=== PATIENT | male | born 1960 | race Caucasian/White ===

== ENCOUNTER 2019-09-11 11:25 | Emergency (ER) | payer BC ==
--- OUTSIDE RECORDS SUMMARY | 2019-09-11 11:57 | XMS REPORT | Continuity of Care Document ---
:1960 External Reference #:[id number] Author Name Olman Bassett MD (transmitted by agent of provider Kassi Hickman) Address [address] [place] [address] Care Team Providers Name Role Phone Rory Geronimo MD - Family Medicine Care Team Information Coagulator Problems Active Problems Provider Date Cervical spondylosis without myelopathy Mathieu Rodriguez M.D. Onset: 12/19/2013 Brachial neuritis Mathieu Rodriguez M.D. Onset: 11/24/2014 Cervical spondylosis Leslye Bullock MD Onset: 07/29/2019 Social History Type Date Description Comments Sex Unknown ETOH Use Currently consumes alcohol ETOH Use consumed 3-4 beers per day Recreational Drug Use Denies Drug Use Tobacco Use Start: Unknown End: Unknown Patient is a former smoker Smoking Status Reviewed: 09/11/19 Patient is a former smoker Allergies, Adverse Reactions, Alerts Description No Known Drug Allergies Medications Active Medications SIG Qnty Indications Ordering Date Provider Losartan Potassium 1 by mouth every 30tabs Rory Geronimo, day 100mg Tablets Viagra 4 times a month 12tabs Rory Geronimo, 100mg Tablets Levothyroxine Sodium 1 by mouth every 30tabs Rory Geronimo, day 88mcg Tablets Amlodipine Besylate 1 by mouth every 90tabs MiduraRory, day MD 10mg Tablets Aspirin 81 1 by mouth every Unknown 81mg Tablets day Doxazosin Mesylate 1 by mouth every Unknown 8mg day Tablets Centrum Vitamints 1 tab daily Unknown Chewtabs Guaiatussin ac take 5 milliliters Unknown every 6-8 hours as 100-10mg/5ML Syrup needed for cough Medications Administered in Office Medication SIG Qnty Indications Ordering Provider Date Celestone 3 mg and 3mg Hilda Joseph, 01/13/2012 Injection M.DCorazon Celestone 3 mg and 3mg Hilda Jake, 01/13/2012 Injection M.DCorazon Celestone 3 mg and 3mg Hilda Joseph, 01/13/2012 Injection M.DCorazon Depomedrol 40MG Roland Rodney M.D. 11/28/2011 Injection Depomedrol 40MG Roland Rodney M.D. 11/28/2011 Injection Celestone 3 mg and 3mg Hilda Joseph, 06/17/2011 Injection M.DCorazon Celestone 3 mg and 3mg Hilda Joseph, 05/13/2011 Injection M.DCorazon Immunizations Description No Information Available Vital Signs Date Vital Result Comment 09/11/2019 10:55am Height 70 inches 5'10" Weight 284.00 lb Heart Rate 65 /min BP Systolic Sitting 140 mmHg L arm BP Diastolic Sitting 93 mmHg L arm O2 % BldC Oximetry 93 % BMI (Body Mass Index) 40.7 kg/m2 07/29/2019 1:13pm Weight 281.00 lb Heart Rate 60 /min BP Systolic Sitting 146 mmHg BP Diastolic Sitting 90 mmHg Results Test Acquired Date Facility Test Result H/L Range Note Neph Routine 08/28/2019 [facility] Total Protein 185 mg/dL [address] [place] [address] [phone] Creatinine Random Urine 112.92 mg/dL CBC Auto 08/28/2019 [facility] White Blood 7.8 10^3/uL Normal 3.5-10.[address] Count [place], [place] [id number] [phone] Red Blood Count 4.54 10^6/uL Normal 4.18-5.48 Hemoglobin 13.7 g/dL Low 14.0-18.0 Hematocrit 40 % Low 42-52 Mean Corpuscular Volume 88 fL Normal 80-94 Mean Corpuscular Hemoglobin 30 pg Normal 27-31 Mean Corpuscular HGB Conc 35 g/dL Normal 31-36 Red Cell Distribution Width 14 % Normal 10-15 Platelet Count 171 10^3/uL Normal 150-450 Mean Platelet Volume 9.0 fL Normal 7.4-10.4 Abs Neutrophils 5.7 10^3/uL Normal 1.5-7.7 Abs Lymphocytes 1.4 10^3/uL Normal 1.0-4.8 Abs Monocytes 0.4 10^3/uL Normal 0-0.8 Abs Eosinophils 0.2 10^3/uL Normal 0-0.6 Abs Basophils 0.1 10^3/uL Normal 0-0.2 Abs Nucleated RBC 0.0 10^3/uL Granulocyte % 72.8 % Lymphocyte % 17.8 % Monocyte % 5.2 % Eosinophil % 2.9 % Basophil % 1.3 % Nucleated Red Blood Cells % 0.2 Urinalysis Profile 08/28/2019 [facility] Urine Color Yellow [address] [place] [address] [phone] Urine Appearance Cloudy Urine Specific Victoria 1.014 Normal 1.010-1.030 Urine pH 5.0 Normal 5-9 Urine Urobilinogen Negative Negative Urine Ketones Negative Negative Urine Protein 2+(100 mg/dL) Abnormal Negative Urine Leukocytes Negative Negative Urine Blood Negative Negative Urine Nitrite Negative Negative Urine Bilirubin Negative Negative Urine Glucose Negative Negative Urine White Blood Cell Trace(0-5/hpf) Absent Urine Red Blood Cell Absent Absent Urine Bacteria Absent Absent Basic Metabolic 08/28/2019 [facility] Sodium 140 mmol/L Normal 135-[address] [place] [address] [phone] Potassium 4.6 mmol/L Normal 3.5-5.0 Co2 Carbon Dioxide 20 mmol/L Low 22-32 Glucose 98 mg/dL Normal 70-100 Blood Urea Nitrogen 39 mg/dL High 6-24 Creatinine 2.57 mg/dL High 0.67-1.17 BUN/Creatinine Ratio 15.2 Normal 8-20 Calcium 9.6 mg/dL Normal 8.6-10.3 Egfr Non- 25.6 >60 Egfr 30.9 >60 1 Chloride 112 mmol/L High 101-111 Anion Gap 8 mmol/L Normal 2-11 Urine Culture And 08/28/2019 [facility] Urine SEE RESULT [address] [place] [address] [phone] Comp Metabolic 06/04/2019 [facility] Sodium 142 mmol/L Normal 135-[address] [place] [address] [phone] Potassium 4.6 mmol/L Normal 3.5-5.0 Co2 Carbon Dioxide 22 mmol/L Normal 22-32 Glucose 97 mg/dL Normal 70-100 Blood Urea Nitrogen 34 mg/dL High 6-24 Creatinine 2.82 mg/dL High 0.67-1.17 BUN/Creatinine Ratio 12.1 Normal 8-20 Calcium 9.0 mg/dL Normal 8.6-10.3 Total Protein 6.1 g/dL Low 6.4-8.9 Albumin 4.2 g/dL Normal 3.2-5.2 Globulin 1.9 g/dL Low 2-4 Albumin/Globulin Ratio 2.2 Normal 1-3 Total Bilirubin 0.40 mg/dL Normal 0.2-1.0 Alkaline Phosphatase 49 U/L Normal 34-104 Alt 31 U/L Normal 7-52 Ast 19 U/L Normal 13-39 Egfr Non- 23.0 >60 Egfr 27.8 >60 3 Chloride 113 mmol/L High 101-111 Anion Gap 7 mmol/L Normal 2-11 CBC Auto 06/04/2019 [facility] White Blood 7.8 10^3/uL Normal 3.5-10.[address] [place] [address] [phone] Red Blood Count 4.57 10^6/uL Normal 4.18-5.48 Hemoglobin 13.7 g/dL Low 14.0-18.0 Hematocrit 41 % Low 42-52 Mean Corpuscular Volume 89 fL Normal 80-94 Mean Corpuscular Hemoglobin 30 pg Normal 27-31 Mean Corpuscular HGB Conc 34 g/dL Normal 31-36 Red Cell Distribution Width 14 % Normal 10-15 Platelet Count 163 10^3/uL Normal 150-450 Mean Platelet Volume 9.2 fL Normal 7.4-10.4 Abs Neutrophils 5.3 10^3/uL Normal 1.5-7.7 Abs Lymphocytes 1.7 10^3/uL Normal 1.0-4.8 Abs Monocytes 0.5 10^3/uL Normal 0-0.8 Abs Eosinophils 0.3 10^3/uL Normal 0-0.6 Abs Basophils 0.0 10^3/uL Normal 0-0.2 Abs Nucleated RBC 0.0 10^3/uL Granulocyte % 68.2 % Lymphocyte % 22.1 % Monocyte % 5.8 % Eosinophil % 3.4 % Basophil % 0.5 % Nucleated Red Blood Cells % 0.0 Total Protein 24HR 06/04/2019 [facility] Urine Collection Time 24 hr Urine [address] [place] [address] [phone] Urine Total Volume 2850 mL Urine Total Protein/24HR < 114 mg/24Hr Normal 0-165 Creatinine 06/04/2019 [facility] Creatinine, 2.94 High 0.51- 0.[address] Serum mg/[place] [address] [phone] Urine Collection Time 24 hr Urine Total Volume 2850 mL Creatinine Clearance 60 mL/min Low 97-137 Laboratory test 06/04/2019 [facility] Urine TP < 4 mg/dL finding [address] [address] [phone] Urine Creatinine Concentration 88.73 mg/dL Urine Microalbumin 06/04/2019 [facility] Urine Creatinine 136.73 mg/dL Random [address] [place] [address] [phone] Ur Microalbumin (mg/L) > 1500.0 mg/L Urine Microalbumin/Creatinine 1097.0 High <31 Laboratory test 06/04/2019 [facility] Anti Nuclear 0.2 U [address] [place] [address] [phone] TSH (Thyroid Stim Horm) 1.98 mcIU/mL Normal 0.34-5.60 5 Free T4 (Free Thyroxine) 0.87 ng/dL Normal 0.61-1.12 6 1 Because ethnic data is not always readily available, this report includes an eGFR for both -Americans and non- Americans. The National Kidney Disease Education Program (NKDEP) does not endorse the use of the MDRD equation for patients that are not between the ages of 18 and 70, are , have extremes of body size, muscle mass, or nutritional status, or are non- or non-. According to the National Kidney Foundation, irrespective of diagnosis, the stage of the disease is based on the level of kidney function: Stage Description GFR(mL/min/1.73 m(2)) 1 Kidney damage with normal or decreased GFR 90 2 Kidney damage with mild decrease in GFR 60-89 3 Moderate decrease in GFR 30-59 4 Severe decrease in GFR 15-29 5 Kidney failure <15 (or dialysis) 2 SEE RESULT BELOW Name: ROBERT COVARRUBIAS : [address]: Ana Vitcoria MD Acct: [id number] Unit: [id number] AGE: 59 Location: LAB Re08/28/19 SEX: M Status: REG REF SPEC: [id number] VIANNEY: 08/28/[address] [facility] [address]: Ana Victoria MD REQ: [id number] RECD: 08/28/19 STATUS: COMP _ SOURCE: URINE SPDC: ORDERED: Urine Culture Procedure Result Reported Site Urine Culture Final 08/29/19- 1114 ML No Growth (<1,000 CFU/mL) * ML - Main Lab . END OF REPORT DEPARTMENT OF PATHOLOGY, [address] [place] [address] Anthony Manning M.D. Director [facility] # [id number] 3 Because ethnic data is not always readily available, this report includes an eGFR for both -Americans and non- Americans. The National Kidney Disease Education Program (NKDEP) does not endorse the use of the MDRD equation for patients that are not between the ages of 18 and 70, are , have extremes of body size, muscle mass, or nutritional status, or are non- or non-. According to the National Kidney Foundation, irrespective of diagnosis, the stage of the disease is based on the level of kidney function: Stage Description GFR(mL/min/1.73 m(2)) 1 Kidney damage with normal or decreased GFR 90 2 Kidney damage with mild decrease in GFR 60-89 3 Moderate decrease in GFR 30-59 4 Severe decrease in GFR 15-29 5 Kidney failure <15 (or dialysis) 4 REFERENCE VALUE <=1.0 (Negative) Test Performed by: [facility] - [address] [address] Fire Code Inspector: Bret Villareal M.D. Ph.D.; CLIA# [id number] 5 FASTING 6 FASTING Procedures Date Code Description Status 06/27/2019 56243 EKG Tracing & Interpretation Completed 05/17/2018 [id number] Colonoscopy Completed Medical Devices Description No Information Available Encounters Type Date Location Provider Dx Diagnosis Office Visit 09/11/2019 [facility] Nephrology Olman Bassett, N18.4 Chronic kidney 10:20a MD disease, stage 4 (severe) E03.9 Hypothyroidism, unspecified I10 Essential (primary) hypertension Office Visit 07/29/2019 [facility] M47.892 Other 1:00p Services Of Erin Bullock MD spondylosis, cervical region R20.2 Paresthesia of skin Z98.1 Arthrodesis status Office Visit 06/27/2019 11:20a [facility] Jam Rosa N18.9 Chronic kidney Of [facility] DO Richard disease, FACC unspecified F17.201 Nicotine dependence, unspecified, in remission I10 Essential (primary) hypertension E03.9 Hypothyroidism, unspecified Z68.39 Body mass index (BMI) 39.0-39.9, adult E66.8 Other obesity Z82.49 Family hx of ischem heart dis and oth dis of the circ sys Office Visit 06/26/2019 11:00a [facility] Nephrology Ana Victoria, N18.4 Chronic kidney disease, stage 4 (severe) R80.9 Proteinuria, unspecified Assessments Date Code Description Provider 09/11/2019 N18.4 Chronic kidney disease, stage 4 (severe) Olman Bassett MD 09/11/2019 E03.9 Hypothyroidism, unspecified Olman Bassett MD 09/11/2019 I10 Essential (primary) hypertension Olman Bassett MD 07/29/2019 M47.892 Other spondylosis, cervical region Leslye Bullock MD 07/29/2019 R20.2 Paresthesia of skin Leslye Bullock MD 07/29/2019 Z98.1 Arthrodesis status Leslye Bullock MD 06/27/2019 N18.9 Chronic kidney disease, unspecified Jam Ramos DO FACC 06/27/2019 F17.201 Nicotine dependence, unspecified, in Jam Ramos DO FACC remission 06/27/2019 I10 Essential (primary) hypertension Jam Ramos DO FACC 06/27/2019 E03.9 Hypothyroidism, unspecified Jam Ramos DO FACC 06/27/2019 Z68.39 Body mass index (BMI) 39.0-39.9, adult Jam Ramos, DO [facility] 06/27/2019 E66.8 Other obesity Jam Ramos, DO [facility] 06/27/2019 Z82.49 Family history of ischemic heart disease Jam Ramos, DO [facility] and other diseases of the circulatory system 06/26/2019 N18.4 Chronic kidney disease, stage 4 (severe) Ana Victoria MD 06/26/2019 R80.9 Proteinuria, unspecified Ana Victoria MD Plan of Treatment Future Appointment(s):09/02/2020 8:00 am - Olman Bassett MD at [facility] Bbswychfwo77/28/2020 9:30 am - Leslye Bullock MD at [facility]09/11/2019 - Olman Bassett MDN18.4 Chronic kidney disease, stage 4 (severe)Follow up:He needs f/u in 3 months with Labs, but wants to come in 1 year. I asked him to see his PCP in March and I'll see him in OajupcptV47.9 Hypothyroidism, [id number] Essential (primary) hypertension Functional Status Description No Information Available Mental Status Description No Information Available Referrals Description No Information Available
--- OUTSIDE RECORDS SUMMARY | 2019-09-11 11:57 | XMS REPORT | Continuity of Care Document ---
:1960 External Reference #:[id number] Author Name Leslye Bullock MD (transmitted by agent of provider Isidra Whittaker ) Address [address] [address] Care Team Providers Name Role Phone Rory Geronimo MD - Family Medicine Care Team Information Manager Of [employer] [phone] Problems Active Problems Provider Date Cervical spondylosis [...] is a former smoker Smoking Status Reviewed: 06/27/19 Patient is a former smoker Allergies, Adverse [...] 1 by mouth every 90tabs MiduraRory, day 10mg Tablets Aspirin 81 1 by mouth every Unknown 81mg Tablets day Doxazosin Mesylate 1 by mouth every Unknown 8mg day Tablets Centrum Vitamints 1 tab daily Unknown Chewtabs Prednisone 2 tabs daily for 7 Unknown 10mg (21) days, 1 tab daily TBPK for 2 weeks Guaiatussin ac take 5 milliliters Unknown every 6-8 hours as 100-10mg/5ML Syrup needed for cough Medications Administered in Office Medication SIG Qnty Indications Ordering Provider Date Celestone 3 mg and 3mg Hilda Joseph, 01/13/2012 Injection Petey Celestone 3 mg and 3mg Hilda Joseph, 01/13/2012 Injection Petey Celestone 3 mg and 3mg Hilda Joseph, 01/13/2012 Injection Petey Depomedrol 40MG Roland Rodney M.D. 11/28/2011 Injection Depomedrol 40MG Roland Rodney M.D. 11/28/2011 Injection Celestone 3 mg and 3mg Hilda Joseph, 06/17/2011 Injection Petey Celestone 3 mg and 3mg Hilda Joseph, 05/13/2011 Injection Petey Immunizations Description No Information Available Vital Signs Date Vital Result Comment 07/29/2019 1:13pm Weight 281.00 lb Heart Rate 60 /min BP Systolic Sitting 146 mmHg BP Diastolic Sitting 90 mmHg 06/27/2019 10:30am Height 70.5 inches 5'10.50" Weight 280.00 lb with shoes Heart Rate 68 /min irregular BP Systolic 142 mmHg Rue large cuff BP Diastolic 90 mmHg Rue large cuff BP Systolic Sitting 138 mmHg Lue large cuff BP Diastolic Sitting 90 mmHg Lue large cuff BP Systolic Standing 136 mmHg Lue large cuff BP Diastolic Standing 90 mmHg Lue large cuff Respiratory Rate 13 /min BMI (Body Mass Index) 39.6 kg/m2 Results Test Date Facility Test Result H/L Range Note Comp Metabolic 06/04/2019 [facility] Sodium 142 mmol/L Normal 135-[address] [place] [address] [phone] Potassium 4.6 mmol/L Normal 3.5-5.0 Co2 Carbon [...] Egfr Non- 23.0 >60 Egfr 27.8 >60 1 Chloride 113 mmol/L High 101-111 Anion Gap 7 mmol/L Normal 2-11 CBC Auto 06/04/2019 [facility] White Blood 7.8 10^3/uL Normal 3.5-10.[address] [place] [address] [phone] Red Blood Count 4.57 10^6/uL Normal 4.18-5.48 [...] Cells % 0.0 Total Protein 24HR 06/04/2019 [facility] Urine Collection Time 24 hr Urine [address] [place] [address] [phone] Urine Total Volume 2850 mL Urine Total Protein/24HR < 114 mg/24Hr Normal 0-165 Creatinine 06/04/2019 [facility] Creatinine, 2.94 High 0.51- 0.[address] Serum mg/[place] [address] [phone] Urine Collection Time 24 hr Urine Total Volume 2850 mL Creatinine Clearance 60 mL/min Low 97-137 Laboratory test 06/04/2019 [facility] Urine TP < 4 mg/dL finding [address] [place] [address] [phone] Urine Creatinine Concentration 88.73 mg/dL Urine Microalbumin 06/04/2019 [facility] Urine Creatinine 136.73 mg/dL Random [address] [place] [address] [phone] Ur Microalbumin (mg/L) > 1500.0 mg/L Urine Microalbumin/Creatinine 1097.0 High <31 Laboratory test 06/04/2019 [facility] Anti Nuclear 0.2 U [address] [address] [phone] TSH (Thyroid Stim Horm) 1.98 mcIU/mL Normal 0.34-5.60 3 Free T4 (Free Thyroxine) 0.87 ng/dL Normal 0.61-1.12 4 1 Because ethnic data is not always [...] 5 Kidney failure <15 (or dialysis) 2 REFERENCE VALUE <=1.0 (Negative) Test Performed by: [facility] [address] [place] [address] [employer] Specialist: Bret Villareal M.D. Ph.D.; CLIA# [id number] 3 FASTING 4 FASTING Procedures Date Code Description Status 06/27/2019 87579 EKG Tracing & Interpretation Completed 05/17/2018 [id number] Colonoscopy Completed Medical Devices Description No Information Available Encounters Type Date Location Provider Dx Diagnosis Office Visit 06/27/2019 [facility] Jam Ramos, N18.9 Chronic kidney 11:20a Of [facility] DO FACC disease, unspecified F17.201 Nicotine dependence, unspecified, in remission I10 Essential (primary) hypertension E03.9 Hypothyroidism, unspecified Z68.39 Body mass index (BMI) 39.0-39.9, adult E66.8 Other obesity Z82.49 Family hx of ischem heart dis and oth dis of the circ sys Office Visit 06/26/2019 11:00a [facility] Nephrology Ana Victoria, N18.4 Chronic kidney MD disease, stage 4 (severe) R80.9 Proteinuria, unspecified Office Visit 02/06/2019 9:00a [facility] Nephrology Ana R80.9 Proteinuria, MD Esme unspecified N18.3 Chronic kidney disease, stage 3 (moderate) I12.9 Hypertensive chronic kidney disease w stg 1-4/unsp chr kdny E03.9 Hypothyroidism, unspecified Assessments Date Code Description Provider 07/29/2019 M47.892 Other spondylosis, cervical region Vassildeejay Bullock MD 06/27/2019 N18.9 Chronic kidney disease, unspecified Jam Ramos DO FACC 06/27/2019 F17.201 Nicotine dependence, unspecified, in Jam Ramos, DO FACC remission 06/27/2019 I10 Essential (primary) hypertension Jam Ramos DO FACC 06/27/2019 E03.9 Hypothyroidism, unspecified Jam Ramos DO FACC 06/27/2019 Z68.39 Body mass index (BMI) 39.0-39.9, adult Jam Ramos DO FACC 06/27/2019 E66.8 Other obesity Jam Ramos DO FAC 06/27/2019 Z82.49 Family history of ischemic heart disease Jam Ramos, DO [facility] and other diseases of the circulatory system 06/26/2019 N18.4 Chronic kidney disease, stage 4 (severe) Ana Victoria MD 06/26/2019 R80.9 Proteinuria, unspecified Ana Victoria MD 02/06/2019 R80.9 Proteinuria, unspecified Ana Victoria MD 02/06/2019 N18.3 Chronic kidney disease, stage 3 Ana Victoria MD (moderate) 02/06/2019 I12.9 Hypertensive chronic kidney disease with Ana Victoria MD stage 1 through sta 02/06/2019 E03.9 Hypothyroidism, unspecified Ana Victoria MD Plan of Treatment Future Appointment(s):07/29/2020 9:30 am - Leslye Bullock MD at [facility]09/02/2019 9:00 am - Olman Bassett MD at [facility] Kaxmyhholf81/28/2019 - Leslye Bullock, MDM47.892 Other spondylosis, cervical regionFollow up:RV in 1 year Functional Status Description No Information Available Mental Status Description No Information Available Referrals Description No Information Available
--- NOTE | 2019-09-11 12:13 | ED ---
Lower Extremity - HPI Summary HPI Summary: Patient is a 59 y/o M presenting to [facility] with complaints of pain to his left upper leg. Patient believes that he pulled "something" in his left upper leg. Pain has been present for the past three weeks. Patient is capable of putting weight on his left leg. He notes that when he sits for a long period of time and stands up, he experiences an exacerbation of pain. Patient cannot recall any discrete injury, he states that the pain has been present for the past three weeks. PMHx of HTN is endorsed. PSHx of left ankle surgery. He is a former smoker and occasional uses alcohol. On triage, pain is rated 3/10. Home medications and allergies are reviewed. - History of Current Complaint Chief Complaint: EDExtremityLower Stated Complaint: LT KNEE PAIN PER PT Time Seen by Provider: 09/11/19 11:56 Hx Obtained From: Patient Mechanism Of Injury: Other - no JENI reported Onset of Pain: Prior to Arrival Onset/Duration: Still Present Severity Currently: Mild Pain Intensity: 3 Pain Scale Used: 0-10 Numeric Timing: Constant, Lasting Weeks Location: Is Discrete @ - upper left leg Associated Signs And Symptoms: Positive: Negative Aggravating Factor(s): Other - when he sits for a long period of time and stands up, he experiences an exacerbation of pain. Alleviating Factor(s): Nothing - Allergies/Home Medications Allergies/Adverse Reactions: Allergies Allergy/AdvReac Type Severity Reaction Status Date / Time No Known Allergies Allergy Verified 10/26/16 13:25 PMH/Surg Hx/FS Hx/Imm Hx Endocrine/Hematology History: Denies: Hx Diabetes Cardiovascular History: Reports: Hx Hypertension Denies: Hx Pacemaker/ICD Respiratory History: Denies: Hx Asthma Sensory History: Denies: Hx Hearing Aid Psychiatric History: Denies: Hx Panic Disorder - Surgical History Surgery Procedure, Year, and Place: C-SP FUSION, [facility] Infectious Disease History: Unable to Obtain/Confirm Infectious Disease History: Denies: Traveled Outside the [place] in Last 30 Days - Family History Known Family History: Positive: Cardiac Disease - Social History Alcohol Use: None Substance Use Type: Reports: None Smoking Status (MU): Former Smoker Review of Systems Negative: Fever - on vitals, temp is 97.9 F Musculoskeletal: Other - positive - upper left leg pain All Other Systems Reviewed And Are Negative: Yes Physical Exam - Summary Physical Exam Summary: VITAL SIGNS: Reviewed. GENERAL: Patient is a well-developed and nourished male who is lying comfortable in the stretcher. Patient is not in any acute respiratory distress. HEAD AND FACE: No signs of trauma. No ecchymosis, hematomas or skull depressions. No sinus tenderness. EYES: PERRLA, EOMI x 2, No injected conjunctiva, no nystagmus. EARS: Hearing grossly intact. Ear canals and tympanic membranes are within normal limits. MOUTH: Oropharynx within normal limits. NECK: Supple, trachea is midline, no adenopathy, no JVD, no carotid bruit, no c- spine tenderness, neck with full ROM. CHEST: Symmetric, no tenderness at palpation. LUNGS: Clear to auscultation bilaterally. No wheezing or crackles. CVS: Regular rate and rhythm, S1 and S2 present, no murmurs or gallops appreciated. ABDOMEN: Soft, non-tender. No signs of distention. No rebound, no guarding, and no masses palpated. Bowel sounds are normal. EXTREMITIES: FROM in all major joints, no edema, no cyanosis or clubbing. NEURO: Alert and oriented x 3. No acute neurological deficits. Speech is normal and follows commands. SKIN: Dry and warm. Triage Information Reviewed: Yes Vital Signs On Initial Exam: Initial Vitals Temp Pulse Resp BP Pulse Ox 97.9 F 62 18 187/92 97 09/11/19 11:38 12 11:38 09/11/19 11:38 09/11/19 11:38 09/11/19 11:38 Vital Signs Reviewed: Yes Procedures - Sedation Patient Received Moderate/Deep Sedation with Procedure: No Diagnostics - Vital Signs Vital Signs Temp Pulse Resp BP Pulse Ox 09/11/19 11:38 97.9 F 62 18 187/92 97 - Laboratory Lab Statement: Any lab studies that have been ordered have been reviewed, and results considered in the medical decision making process. - Radiology Knee XR Radiology Interpretation Completed By: Radiologist Summary of Radiographic Findings: IMPRESSION: Unremarkable left knee. An ED physician has reviewed this report. Lower Extremity Course/Dx - Course Assessment/Plan: Patient is a 59 y/o M presenting to [facility] with complaints of pain to his left upper leg. Patient believes that he pulled "something" in his left upper leg. Pain has been present for the past three weeks. Patient is capable of putting weight on his left leg. He notes that when he sits for a long period of time and stands up, he experiences an exacerbation of pain. Patient cannot recall any discrete injury, he states that the pain has been present for the past three weeks. PMHx of HTN is endorsed. PSHx of left ankle surgery. He is a former smoker and occasionally uses alcohol. On triage, pain is rated 3/10. Home medications and allergies are reviewed. X-ray of the left knee impression: Unremarkable left knee. Therefore, the patient was discharged home with follow-up with primary care physician and his orthopedic doctor. The patient is able to ambulate with no pain. Patient is hemodynamically stable alert oriented 3. - Diagnoses Differential Diagnosis/HQI/PQRI: Positive: Bursitis, Fracture (Closed), Sprain, Strain Provider Diagnoses: Knee pain Discharge ED - Sign-Out/Discharge Documenting (check all that apply): Patient Departure - discharge - Discharge Plan Condition: Stable Disposition: HOME Patient Education Materials: Knee Pain (ED) Referrals: Rory Geronimo MD [Primary Care Provider] - Additional Instructions: Follow up with your primary care provider in 2-3 days. Return to the Emergency room if you experience new or worsened symptoms. - Billing Disposition and Condition Condition: STABLE Disposition: Home - Attestation Statements Document Initiated by Giancarlo: Yes Documenting Scribe: Logan Dc Provider For Whom Giancarlo is Documenting (Include Credential): Tapan Ellis MD Scribe Attestation: Logan Still, scribed for Tapan Ellis MD on at 1047. Scribe Documentation Reviewed: Yes Provider Attestation: The documentation as recorded by the georgeibrudy, Logan Dc accurately reflects the service I personally performed and the decisions made by , Tapan Ellis MD Status of Scribe Document: Viewed
[2019-09-11] MEDS ORDERED: Albuterol/Ipratropium NEB.SOL* Albuterol 2.5 MG/Ipratropium 0.5 MG 3 ML INH ONE (12:14)
[2019-09-11] MEDS ORDERED: methylPREDNISolone 125 MG* 2 ML VIAL IV ONE (12:14)
[2019-09-11 13:35] VITALS: BP 149/87
== END 2019-09-11 13:34 | disposition home or self-care (01) ==
LOC: ED 11:25
DX: M25.562 Pain in left knee (principal); I10 Essential (primary) hypertension; Z87.891 Personal history of nicotine dependence
CPT/HCPCS: 99282

== ENCOUNTER 2019-10-15 06:55 | Day surgery (SDC) | payer BC ==
--- NOTE | 2019-10-09 09:59 | HP ---
HISTORY AND PHYSICAL: DATE OF ADMISSION: 10/15/19 He is entering [facility] for same day surgery at the [facility] on 10/15/19. CHIEF COMPLAINT: Medial left knee pain. HISTORY OF PRESENT ILLNESS: This 59-year-old male, cared for by Dr. Geronimo, has had 6 weeks of medial left knee pain. It got started when he was taking off his hunting boots on about 08/21/19 and he has had trouble getting comfortable in the region since that time. There has been some catching. He has had to walk through his foot turned out. If he catches his left toe on something, it is severely painful for the left knee. He has recently finished a week of steroids from Dr. Geronimo and he notes that hydrocodone has cut the pain in half. He has not been allowed to take ibuprofen or Aleve because of other problems, but he has used some Tylenol. His hydrocodone has been renewed once by Dr. Geronimo. The MRI scan of this knee is pending. PAST MEDICAL HISTORY: He has been overweight. He quit smoking 18 months ago. He has 3 to 4 alcoholic beverage drinks per week. He has not had any cancers. No history of DVT or pulmonary embolism. He is being followed for proteinuria by the nephrology service. No history of heart attack. No history of chest pain. No history of bronchitis. Hypertension. No history of embolism or palpitations. No asthma. No diabetes. No GI problems. Renal proteinuria was noted already. No bleeding tendencies. PAST SURGICAL HISTORY: On the neck 2006, no complications. MEDICATIONS: Daily meds include: 1. Multivitamins. 2. Aspirin 81 mg. 3. Losartan 100 mg. 4. Doxazosin 4 mg. 5. Levothroid 88 mcg. 6. Amlodipine 10 mg. 7. Hydrocodone 325 mg. 8. Methylprednisolone, which is now stopped was 4 mg. ALLERGIES: No allergies to medications. FAMILY HISTORY: Positive for cardiac and hypertension. Negative for diabetes and cancer. SOCIAL HISTORY: Lives with his spouse. 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 His hobbies are hunting and fishing. REVIEW OF SYSTEMS: No fevers, or chills. No chest pain. No palpitations. No shortness of breath. No GI/ symptoms currently. He has had some weight gain , which he attributes to the holidays. PHYSICAL EXAMINATION GENERAL: Antalgic gait on the left. He walks with a left foot turned out. The knee is straight. The knee has no marked effusion. VITAL SIGNS: The weight is 285. HEENT: Head: NC/AT. normocephalic, symmetrical. Eyes: PERRLA. Tympanic membranes intact. Sclerae anicteric. Conjunctivae clear. LUNGS: Clear to bilaterally. HEART: Regular. S1, S2 normal. No murmurs or gallops. ABDOMEN: Round, soft, nontender. There is no organomegaly. EXTREMITIES: The left posterior tibial pulse is 2+. Left knee markedly tender on the medial joint line with clicking with rotational testing in the medial joint line. Ligaments are stable. NEUROLOGIC: Cranial nerves are grossly intact. IMPRESSION: Left knee medial meniscal tear. PLAN: Left knee arthroscopic surgery. We have asked him to see Dr. Lucas for clearance prior to the surgical care. [id number]/[facility] #: [id number] [facility]ACH HOSPITALAlexandra
[~2019-10-15 06:55] MED LIST: Buffered Lidocaine 1% SYRIN* 1 ML/SYRINGE INTRADERM ONE; Dexamethasone IV* 4 MG/ML 1 ML (4 MG) IV SLOW PU ONE; Famotidine IV* 10 MG/ML 2 ML (20 mg) IV ONE; Lactated Ringers 1000 ML Bag* 1,000 ML IV SCH
[2019-10-15] MEDS ORDERED: Dexamethasone IV* 4 MG/ML 1 ML (4 MG) ONE ×2 (08:01→08:22)
[2019-10-15] MEDS ORDERED: Famotidine IV* 10 MG/ML 2 ML (20 mg) ONE (08:02)
[2019-10-15] MEDS ORDERED: Buffered Lidocaine 1% SYRIN* 1 ML/SYRINGE INTRADERM ONE (08:02)
[2019-10-15] MEDS ORDERED: ceFAZolin 1 GM ADVAN(*) 1 GM ADDV.VIAL IVPB ONE (08:02)
[2019-10-15] MEDS ORDERED: ceFAZolin 2 GM PREMIX in ORs 2 GM/50 ML BAG ONE (08:02)
[2019-10-15] MEDS ORDERED: HYDROcodone/ACETAMIN 5-325 MG* 1 TAB PO PRN (08:58)
[2019-10-15] MEDS ORDERED: oxyCODONE/Acetamin 5/325 MG* TAB PO PRN (08:58)
[2019-10-15] MEDS ORDERED: DiMENhydriNATE IV* 50 MG/ML VIAL IV PUSH PRN (08:58)
[2019-10-15] MEDS ORDERED: Naloxone* 0.4 MG/ML 1 ML VIAL IV PRN (08:58)
[2019-10-15] MEDS ORDERED: fentaNYL* 50 MCG/ML 2 ML VIAL (100 MCG VIAL) ONE ×2 (09:13→11:12)
[2019-10-15] MEDS ORDERED: Midazolam* 1 MG/ML 5 ML VIAL (5 MG) ONE (09:13)
[2019-10-15] MEDS ORDERED: Bupivacaine 0.25% EPI 200,000* 30 ML SDV ONE (09:15)
[2019-10-15] MEDS ORDERED: Propofol* 10 MG/ML 20 ML BTL ONE (09:17)
[2019-10-15] MEDS ORDERED: Lidocaine 2% PF * 5 ML VIAL ONE (09:17)
[2019-10-15] MEDS ORDERED: Ondansetron INJ* 2 MG/ML VIAL ONE (10:10)
[2019-10-15] MEDS ORDERED: HYDROcodone/ACETAMIN 5-325 MG* 1 TAB ONE (11:12)
[2019-10-15] MEDS: fentaNYL* 50 MCG/ML 2 ML VIAL (100 MCG VIAL) IV PRN ×2 (11:15→11:31)
[2019-10-15 11:33] VITALS: BP 124/76
--- NOTE | 2019-10-15 20:23 | OP ---
CC: Dr. Geronimo, [facility] * DATE OF OPERATION: 10/15/19 - SDS DATE OF : 56 SURGICAL CARE: Left knee. SURGEON: Roland Rodney MD HAM CLERK: AME Varghese, city carrier assistant. The city carrier assistant assistance was essential during the case for positioning, stressing the knee to open up the medial compartment for medial meniscectomy, and retraction. PRE-OP DIAGNOSIS: Left knee medial meniscal tear. 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 OPERATIVE PROCEDURE: Left knee partial medial meniscectomy and chondroplasty patella. COMPLICATIONS: There were no complications. DRAINS: There were no drains. TOURNIQUET: Tourniquet control was utilized. OPERATIVE INDICATION: Severe medial knee pain for 6 to 8 weeks and MRI scan showing medial meniscal tear. CONDITION: Stable to recovery room. DESCRIPTION OF PROCEDURE: The patient was brought to the operating room and placed on the operating room table in a supine position. Following the administration of the general anesthetic and insertion of LMA general, the patient's left proximal thigh was wrapped with a tourniquet and the left leg was given a preliminary chlorhexidine prep at the knee and then a formal prep from the tourniquet to the foot. After prepping, draping, and sealing off, we did our universal protocol time-out confirming Robert Cook and plan for left knee arthroscopic surgery. We all agreed and we proceeded. The leg was exsanguinated. The tourniquet was elevated to 275. The knee was set up for the arthroscopy with the arthroscope lateral to the patellar tendon, probe and operating instruments medial to the patellar tendon and an inflow catheter superomedial to the patella. The knee was irrigated first and the irrigation was free of debris. The survey of the joint showed chondromalacia patella and mid patella small flaps and the trochlear cartilage was perfect. The medial and lateral gutters were clear. The ACL looked satisfactory with some loss of synovial covering, no fraying. The lateral joint compartment was in satisfactory condition, lateral femoral condyle, lateral meniscus, lateral tibial plateau. The medial femoral condyle and the medial tibial plateau were in good condition. The medial meniscus was completely torn up in complex fashion on the inferior surface from the level of the MCL going posteriorly. The shaver was inserted underneath the meniscus and bringing forth lots of complex tearing and flap tearing including into the medial gutter. The superior leaflet was also removed with baskets going posteriorly and then the anterior transition on the meniscus was smooth from the anterolateral portal. Once the surgical repair was completed, final photographs obtained of the meniscus. The patella re-shaved in its mid portion for any loose cartilage. The knee was irrigated with another 4 L of saline irrigation solution and emptied, then instilled with Marcaine 0.25% with epinephrine 30 mL. The skin portal was closed with interrupted 3-0 Surgipro and the dressing applied after washing and drying with Betadine-soaked sterile gauze, sterile Webril, cryotherapy cuff, ABD pads, and a 6-inch Gurpreet bandage loosely applied. The patient was returned to recovery room in stable and satisfactory condition, having tolerated the procedure very well. [id number]/[facility] #: [id number] [facility]
== END 2019-10-15 12:16 | disposition home or self-care (01) ==
LOC: OR 06:55
PROVIDERS: ATTEND Orthopaedic Surgery
DX: S83.242A Other tear of medial meniscus, current injury, left knee, initial encounter (principal); M22.42 Chondromalacia patellae, left knee; X50.0XXA Overexertion from strenuous movement or load, initial encounter; Y92.9 Unspecified place or not applicable; I12.9 Hypertensive chronic kidney disease with stage 1 through stage 4 chronic kidney disease, or unspecified chronic kidney disease; E03.9 Hypothyroidism, unspecified; N18.9 Chronic kidney disease, unspecified; N40.0 Benign prostatic hyperplasia without lower urinary tract symptoms; R80.9 Proteinuria, unspecified
CPT/HCPCS: 88304; J0690; J1100; J2250; J2405; J2704; J3010